=== PATIENT | female | born 1990 | race Two or more races ===

== ENCOUNTER 2016-12-06 07:34 | Emergency (ER) | payer MEDICAID ==
[~2016-12-06] VITALS: Ht 165.1 cm; Wt 49.4 kg
[~2016-12-06 07:34] MED LIST: LAMO100T5 PO; TOPI50TA77 PO
[2016-12-06 07:35] VITALS: BP 101/66
[2016-12-06 09:36] LABS: HCG UR OBC PASS
[2016-12-06] MEDS ORDERED: AZITHROMYCIN 500 MG TABLET PO ONE (10:00)
[2016-12-06] MEDS ORDERED: CEFTRIAXONE 250 MG IM ONE (10:00)
[2016-12-06] MEDS ORDERED: LIDOCAINE 1%, 20ML ONE (10:08)
[2016-12-06] MEDS ORDERED: AZITHROMYCIN 500 MG TABLET ONE (10:08)
[2016-12-06] MEDS ORDERED: CEFTRIAXONE 250 MG ONE (10:08)
== END 2016-12-06 10:25 | disposition home or self-care (01) ==
LOC: ED 08:31
DX: N39.0 Urinary tract infection, site not specified (principal); A64 Unspecified sexually transmitted disease; N76.0 Acute vaginitis; G40.909 Epilepsy, unspecified, not intractable, without status epilepticus; F15.10 Other stimulant abuse, uncomplicated
CPT/HCPCS: 81001; 81025; 87077; 87086; 87210; 87491; 87591; 87808; 96372; 99284; J0696; 87186

== ENCOUNTER 2017-07-25 19:58 | Emergency (ER) | payer MEDICAID ==
[~2017-07-25] VITALS: Ht 165.1 cm; Wt 50.0 kg
[~2017-07-25 19:58] MED LIST changes: -TOPI50TA77 PO; +TOPI50TA8 PO
[2017-07-25 20:15] VITALS: BP 115/74
[2017-07-25] MEDS ORDERED: BACITRACIN ZINC OINT 500U/GM, 0.9 GM ONE (20:42)
[2017-07-25] MEDS ORDERED: DIPH,PERTUSS(ACELL),TET VAC/PF 0.5 ML IM-VACC ONE ×2 (20:43→21:00)
== END 2017-07-25 21:10 | disposition home or self-care (01) ==
LOC: ED 21:04
DX: L03.031 Cellulitis of right toe (principal)
CPT/HCPCS: 90471; 90715

== ENCOUNTER 2018-01-05 08:45 | Emergency (ER) | payer MEDICAID ==
[~2018-01-05] VITALS: Ht 165.1 cm; Wt 46.7 kg
[2018-01-05] MEDS ORDERED: LAMOTRIGINE 100 MG TABLET PO SCH (09:30)
[2018-01-05] MEDS ORDERED: LORazepam 2 MG/ML, 1ML IVPush ONE (09:30)
[2018-01-05] MEDS ORDERED: TOPIRAMATE 25 MG TABLET PO SCH (09:30)
[2018-01-05] MEDS ORDERED: SODIUM CHLORIDE FLUSH 10ML SYR IVF ONE (09:30)
[2018-01-05] MEDS ORDERED: LORazepam 2 MG/ML, 1ML ONE (09:32)
[2018-01-05 09:41] LABS: BASOPHILS # (AUTO) 0.04 x10^3/uL (0-0.1); BASOPHILS % (AUTO) 0 % (0-1); EOSINOPHILS # (AUTO) 0.13 x10^3/uL (0-0.4); EOSINOPHILS % (AUTO) 1 % (1-7); LYMPHOCYTES # (AUTO) 2.07 x10^3/uL (1-3.4); LYMPHOCYTES % (AUTO) 22 % (22-44); MD NO; MEAN CORPUSCULAR HEMOGLOBIN 31.2 pg (27.0-34.8); MEAN CORPUSCULAR HGB CONC 34.2 g/dL (32.4-35.8); MEAN CORPUSCULAR VOLUME 91.2 fL (80-100); MEAN PLATELET VOLUME 7.7 fL (7.4-10.4); MONOCYTES # (AUTO) 0.93 x10^3/uL (0.2-0.8); MONOCYTES % (AUTO) 10 % (2-9); NEUTROPHILS # (AUTO) 6.25 x10^3/uL (1.8-6.8); NEUTROPHILS % (AUTO) 66 % (42-75); PLATELET COUNT 327 x10^3/uL (130-400); RED BLOOD COUNT 4.44 x10^6/uL (3.82-5.3); RED CELL DISTRIBUTION WIDTH 12.8 % (9.6-15.2)
[2018-01-05 09:54] LABS: ALANINE AMINOTRANSFERASE 22 U/L (12-78); ALBUMIN 4.1 g/dL (3.4-5.0); ANION GAP 9 mmol/L (5-15); CALCIUM 8.7 mg/dL (8.5-10.1); CHLORIDE 111 mmol/L (98-107)
[2018-01-05 09:58] LABS: ALKALINE PHOSPHATASE 96 U/L (45-117); BILIRUBIN,TOTAL 0.6 mg/dL (0.2-1.0)
[2018-01-05 10:05] VITALS: BP 116/79
[2018-01-05 10:34] LABS: MICROSCOPIC INDICATED
[2018-01-05 10:36] LABS: CULTURE INDICATED? YES
== END 2018-01-05 11:46 | disposition left against medical advice (07) ==
LOC: ED 09:43
DX: R56.9 Unspecified convulsions (principal); F17.200 Nicotine dependence, unspecified, uncomplicated; R82.99 Other abnormal findings in urine
CPT/HCPCS: 36415; 80053; 81001; 84703; 85025; 87077; 87086; 87186; 96374; 99284; J2060

== ENCOUNTER 2018-01-08 09:23 | Inpatient (IN) | payer MEDICAID ==
[~2018-01-08] VITALS: Ht 167.6 cm; Wt 52.8 kg
[2018-01-08] MEDS ORDERED: LORazepam 2 MG/ML, 1ML ONE ×2 (09:25→09:36)
[2018-01-08] MEDS ORDERED: SODIUM CHLORIDE 0.9% 1,000 ML IV ONE (09:32)
[2018-01-08 09:55] LABS: BASOPHILS # (AUTO) 0.05 x10^3/uL (0-0.1); BASOPHILS % (AUTO) 1 % (0-1); EOSINOPHILS # (AUTO) 0.18 x10^3/uL (0-0.4); EOSINOPHILS % (AUTO) 2 % (1-7); LYMPHOCYTES % (AUTO) 27 % (22-44); MD NO; MEAN CORPUSCULAR HEMOGLOBIN 30.6 pg (27.0-34.8); MEAN CORPUSCULAR HGB CONC 33.2 g/dL (32.4-35.8); MEAN CORPUSCULAR VOLUME 92.3 fL (80-100); MEAN PLATELET VOLUME 7.5 fL (7.4-10.4); MONOCYTES # (AUTO) 0.78 x10^3/uL (0.2-0.8); MONOCYTES % (AUTO) 8 % (2-9); NEUTROPHILS % (AUTO) 62 % (42-75); PLATELET COUNT 292 x10^3/uL (130-400); RED BLOOD COUNT 4.72 x10^6/uL (3.82-5.3); RED CELL DISTRIBUTION WIDTH 12.8 % (9.6-15.2)
[2018-01-08] MEDS ORDERED: SODIUM CHLORIDE FLUSH 10ML SYR IVF ONE (10:00)
[2018-01-08] MEDS: PROPOFOL 100 ML IV PRN ×3 (10:00→19:58)
[2018-01-08] MEDS ORDERED: LORazepam 2 MG/ML, 1ML IVPush STA (10:00)
[2018-01-08] MEDS ORDERED: ETOMIDATE 20 MG/10 ML IV ONE (10:00)
[2018-01-08] MEDS ORDERED: SUCCINYLCHOLINE 20 MG/ML, 10ML IVPush ONE (10:00)
[2018-01-08] MEDS ORDERED: LORazepam 2 MG/ML, 1ML IVPush ONE (10:00)
[2018-01-08] MEDS ORDERED: LEVETIRACETAM 1,000 MG in SODIUM CHLORIDE 0.9% 100 ML IV ONE (10:00)
[2018-01-08 10:07] LABS: ALBUMIN 3.9 g/dL (3.4-5.0); ANION GAP 16 mmol/L (5-15); CALCIUM 8.4 mg/dL (8.5-10.1); CHLORIDE 110 mmol/L (98-107)
[2018-01-08 10:13] LABS: ALANINE AMINOTRANSFERASE 20 U/L (12-78); ALKALINE PHOSPHATASE 101 U/L (45-117); BILIRUBIN,TOTAL 0.5 mg/dL (0.2-1.0); CREATININE 1.06 mg/dL (0.55-1.02); TOTAL PROTEIN 7.7 g/dL (6.4-8.2)
[2018-01-08] MEDS ORDERED: SODIUM CHLORIDE 0.9% 1,000ML IVBOLUS ONE (11:00)
[2018-01-08] MEDS ORDERED: MORPHINE SULFATE 4 MG/ML, 1ML ONE (11:02)
[2018-01-08] MEDS: MORPHINE SULFATE 4 MG/ML, 1ML IVPush PRN ×2 (11:04→14:45)
[2018-01-08] MEDS ORDERED: GADOBUTROL 7.5 MMOL/7.5 ML PFS ONE (11:29)
[2018-01-08 11:32] LABS: AMPHETAMINE SCREEN, URINE Positive (Negative); BARBITURATE SCREEN, URINE Negative (Negative); BENZODIAZEPINE SCREEN, URINE Negative (Negative); CANNABINOID SCREEN, URINE Positive (Negative); COCAINE SCREEN, URINE Negative (Negative); METHADONE SCREEN, URINE Negative (Negative); OPIATE SCREEN, URINE Negative (Negative)
[2018-01-08] MEDS ORDERED: ONDANSETRON 2MG/ML, 2ML IVPush PRN (12:00)
[2018-01-08] MEDS ORDERED: BISACODYL 10 MG SUPP PR PRN ×2 (12:00→16:30)
[2018-01-08] MEDS ORDERED: POLYETHYLENE GLYCOL 17 GM PACKET PO PRN (12:00)
[2018-01-08] MEDS ORDERED: PROPOFOL 10 MG/ML, 100ML IV ONE (12:00)
[2018-01-08] MEDS ORDERED: LORazepam 2 MG/ML, 1ML IVPush PRN (12:00)
[2018-01-08] MEDS ORDERED: DOCUSATE 100 MG CAPSULE PO PRN (12:00)
[2018-01-08] MEDS ORDERED: ETOMIDATE 40 MG/20 ML ONE (12:00)
[2018-01-08] MEDS ORDERED: hydrALAzine 20 MG/ML, 1ML IVPush PRN (12:00)
[2018-01-08] MEDS ORDERED: THIAMINE 100 MG, MVI ADULT 10 ML, FOLIC ACID 1 MG in D5%-0.9% NACL 1,000 ML IV SCH (12:00)
[2018-01-08] MEDS ORDERED: SUCCINYLCHOLINE 20 MG/ML, 10ML ONE (12:00)
[2018-01-08] MEDS ORDERED: ACETAMINOPHEN 325 MG TABLET PO PRN (12:00)
[2018-01-08 12:22] VITALS: BP 89/57
[2018-01-08] MEDS: FAMOTIDINE 20 MG/2 ML IVPush SCH ×2 (14:31→21:00)
[2018-01-08] MEDS ORDERED: INSULIN LISPRO 100 UNITS/ML, PEN SQ-INSULIN SCH (16:30)
[2018-01-08] MEDS ORDERED: DEXTROSE 50%, 50ML SYRINGE IVPush PRN (16:30)
[2018-01-08] MEDS ORDERED: FAMOTIDINE 20 MG/2 ML IV SCH (16:30)
[2018-01-08] MEDS ORDERED: LIDOCAINE-MPF 1%, 2ML ENDO PRN (16:30)
[2018-01-08] MEDS ORDERED: PHARMACY MAY ADJ FOR RENAL FX MC SCH (16:30)
[2018-01-08] MEDS ORDERED: GLUCAGON 1 MG IM PRN (16:30)
[2018-01-08] MEDS: ALBUTEROL/IPRATROPIUM 2.5MG/0.5MG, 3 ML INLINE SCH ×3 (16:30→23:12)
[2018-01-08] MEDS ORDERED: LACTULOSE 20 GM/30 ML UDC NG PRN (16:30)
[2018-01-08] MEDS ORDERED: SENNOSIDES 8.8 MG/5 ML ORAL SOL NG PRN (16:30)
[2018-01-08] MEDS ORDERED: FENTANYL PF 100 MCG/2ML IVPush PRN (16:30)
[2018-01-08] MEDS ORDERED: DEXTROSE 4 GM TAB.CHEW PO PRN (16:30)
[2018-01-08] MEDS ORDERED: SENNA/DOCUSATE TABLET NG PRN (16:30)
[2018-01-08] MEDS ORDERED: SODIUM CHLORIDE 0.9%, 500ML IV ONE (16:30)
[2018-01-08] MEDS ORDERED: SODIUM CHLORIDE 0.9%, 500ML IVBOLUS ONE (18:00)
[2018-01-08] MEDS: LACTATED RINGERS 1,000 ML IV SCH (21:00)
[2018-01-08] MEDS: SODIUM CHLORIDE FLUSH 10ML SYR IVF SCH (21:01)
[2018-01-08] MEDS ORDERED: LEVETIRACETAM 1,000 MG in SODIUM CHLORIDE 0.9% 100 ML IV SCH (22:00)
[2018-01-09] MEDS: PROPOFOL 100 ML IV PRN (01:36)
[2018-01-09] MEDS: ALBUTEROL/IPRATROPIUM 2.5MG/0.5MG, 3 ML INLINE SCH ×2 (03:00→07:04)
[2018-01-09 06:36] LABS: BASOPHILS # (AUTO) 0.11 x10^3/uL (0-0.1); BASOPHILS % (AUTO) 1 % (0-1); EOSINOPHILS # (AUTO) 0.11 x10^3/uL (0-0.4); EOSINOPHILS % (AUTO) 1 % (1-7); LYMPHOCYTES # (AUTO) 1.32 x10^3/uL (1-3.4); LYMPHOCYTES % (AUTO) 12 % (22-44); MD NO; MEAN CORPUSCULAR HEMOGLOBIN 30.5 pg (27.0-34.8); MEAN CORPUSCULAR HGB CONC 33.5 g/dL (32.4-35.8); MEAN CORPUSCULAR VOLUME 91.2 fL (80-100); MEAN PLATELET VOLUME 7.7 fL (7.4-10.4); MONOCYTES # (AUTO) 0.85 x10^3/uL (0.2-0.8); MONOCYTES % (AUTO) 7 % (2-9); NEUTROPHILS # (AUTO) 9.15 x10^3/uL (1.8-6.8); NEUTROPHILS % (AUTO) 79 % (42-75); PLATELET COUNT 229 x10^3/uL (130-400); RED BLOOD COUNT 3.86 x10^6/uL (3.82-5.3); RED CELL DISTRIBUTION WIDTH 13.1 % (9.6-15.2)
[2018-01-09 06:41] LABS: ALBUMIN 2.9 g/dL (3.4-5.0); ANION GAP 9 mmol/L (5-15); CALCIUM 7.5 mg/dL (8.5-10.1); CHLORIDE 118 mmol/L (98-107)
[2018-01-09 06:53] LABS: ALANINE AMINOTRANSFERASE 17 U/L (12-78); ALKALINE PHOSPHATASE 78 U/L (45-117); BILIRUBIN,TOTAL 0.5 mg/dL (0.2-1.0); CREATININE 0.57 mg/dL (0.55-1.02); TOTAL PROTEIN 5.5 g/dL (6.4-8.2)
[2018-01-09] MEDS: LACTATED RINGERS 1,000 ML IV SCH (07:00)
[2018-01-09] MEDS: FAMOTIDINE 20 MG/2 ML IVPush SCH (09:34)
[2018-01-09] MEDS: SODIUM CHLORIDE FLUSH 10ML SYR IVF SCH ×2 (09:34→21:21)
[2018-01-09] MEDS ORDERED: POTASSIUM CHLORIDE 20 MEQ TAB.ER.PRT PO ONE (11:00)
[2018-01-09] MEDS: LAMOTRIGINE 100 MG TABLET PO SCH ×2 (12:33→21:21)
[2018-01-09] MEDS: TOPIRAMATE 25 MG TABLET PO SCH ×2 (12:34→21:21)
[2018-01-09] MEDS: THIAMINE 100MG TABLET PO SCH (12:35)
[2018-01-09] MEDS: FOLIC ACID 1 MG TABLET PO SCH (12:35)
[2018-01-09 20:00] VITALS: BP 95/53
[2018-01-09] MEDS: FAMOTIDINE 20 MG TABLET PO SCH (21:21)
[2018-01-10 02:00] VITALS: BP 99/43
[2018-01-10 04:34] LABS: ALBUMIN 2.8 g/dL (3.4-5.0); ANION GAP 6 mmol/L (5-15); CALCIUM 7.8 mg/dL (8.5-10.1); CHLORIDE 110 mmol/L (98-107)
[2018-01-10 04:38] LABS: ALANINE AMINOTRANSFERASE 19 U/L (12-78); ALKALINE PHOSPHATASE 96 U/L (45-117); BILIRUBIN,TOTAL 0.4 mg/dL (0.2-1.0); CREATININE 0.77 mg/dL (0.55-1.02)
[2018-01-10 05:00] LABS: MEAN CORPUSCULAR HEMOGLOBIN 30.5 pg (27.0-34.8); MEAN CORPUSCULAR HGB CONC 33.4 g/dL (32.4-35.8); MEAN CORPUSCULAR VOLUME 91.4 fL (80-100); MEAN PLATELET VOLUME 8.1 fL (7.4-10.4); PLATELET COUNT 252 x10^3/uL (130-400); RED CELL DISTRIBUTION WIDTH 13.2 % (9.6-15.2)
[2018-01-10 05:43] LABS: BASOPHILS % (AUTO) 0 % (0-1); EOSINOPHILS # (AUTO) 0.13 x10^3/uL (0-0.4); EOSINOPHILS % (AUTO) 1 % (1-7); LYMPHOCYTES # (AUTO) 1.85 x10^3/uL (1-3.4); LYMPHOCYTES % (AUTO) 9 % (22-44); MD SCAN; MONOCYTES % (AUTO) 6 % (2-9); NEUTROPHILS # (AUTO) 16.61 x10^3/uL (1.8-6.8); NEUTROPHILS % (AUTO) 84 % (42-75)
[2018-01-10] MEDS ORDERED: POTASSIUM CHLORIDE 20 MEQ TAB.ER.PRT PO ONE (08:00)
[2018-01-10 09:12] VITALS: BP 98/64
[2018-01-10] MEDS: FAMOTIDINE 20 MG TABLET PO SCH (09:28)
[2018-01-10] MEDS: TOPIRAMATE 25 MG TABLET PO SCH (09:28)
[2018-01-10] MEDS: THIAMINE 100MG TABLET PO SCH (09:28)
[2018-01-10] MEDS: FOLIC ACID 1 MG TABLET PO SCH (09:29)
[2018-01-10] MEDS: LAMOTRIGINE 100 MG TABLET PO SCH (09:29)
[2018-01-10] MEDS: SODIUM CHLORIDE FLUSH 10ML SYR IVF SCH (09:29)
[2018-01-10 13:34] VITALS: BP 122/78
[2018-01-10] MEDS ORDERED: LAMO100T5 PO (13:55)
[2018-01-10] MEDS ORDERED: TOPI50TA8 PO (13:55)
== END 2018-01-10 18:18 | disposition home or self-care (01) | DRG 100 ==
LOC: ED 10:34 → EDIP 11:06 → CCU 11:53 → 5SO 01-10 07:24
PROVIDERS: ADMIT Emergency Medicine; ATTEND Emergency Medicine
PROC: 5A1935Z Respiratory Ventilation, Less than 24 Consecutive Hours (ICD-10-PCS; principal; 2018-01-08)
PROC: 0BH17EZ Insertion of Endotracheal Airway into Trachea, Via Natural or Artificial Opening (ICD-10-PCS; 2018-01-08)
DX: G40.401 Other generalized epilepsy and epileptic syndromes, not intractable, with status epilepticus (principal); J96.00 Acute respiratory failure, unspecified whether with hypoxia or hypercapnia; E87.2 Acidosis; Z99.11 Dependence on respirator [ventilator] status; F15.90 Other stimulant use, unspecified, uncomplicated; R22.0 Localized swelling, mass and lump, head; Z59.0 Homelessness; Z78.1 Physical restraint status; Z91.14 Patient's other noncompliance with medication regimen; Z91.19 Patient's noncompliance with other medical treatment and regimen
CPT/HCPCS: 31500; 36415; 36600; 51702; 70450; 70553; 71045; 80053; 80307; 82803; 83735; 84100; 84443; 84478; 84703; 85025; 87070; 87081; 87205; 93005; 94002; 94003; 94150; 94640; 95812; 96374; 96375; A9585; J1953; J2704; J3411; J7042; J7620; J0330; J2060; J7030; J7040; J7120; S0028

== ENCOUNTER 2018-04-25 19:06 | Emergency (ER) | payer MEDICAID ==
[2018-04-25] MEDS ORDERED: HYDROcodone/APAP 5/325 TABLET PO STA (20:29)
[2018-04-25] MEDS ORDERED: SULFAMETH./TRIMETHOPRIM DS 800MG/160MG TABLET PO ONE (20:30)
[2018-04-25] MEDS ORDERED: CEPHALEXIN 500 MG CAPSULE PO ONE (20:30)
[2018-04-25] MEDS ORDERED: SULFAMETH./TRIMETHOPRIM DS 800MG/160MG TABLET ONE (20:38)
[2018-04-25] MEDS ORDERED: CEPHALEXIN 500 MG CAPSULE ONE (20:38)
[2018-04-25] MEDS ORDERED: HYDROcodone/APAP 5/325 TABLET ONE (20:38)
[2018-04-25] MEDS ORDERED: LIDOCAINE-MPF 2%, 2ML ONE (21:22)
[2018-04-25 21:58] VITALS: BP 126/72
== END 2018-04-25 22:00 | disposition home or self-care (01) ==
LOC: ED 21:54
DX: L02.415 Cutaneous abscess of right lower limb (principal); L03.011 Cellulitis of right finger; F15.20 Other stimulant dependence, uncomplicated; F17.200 Nicotine dependence, unspecified, uncomplicated; G40.909 Epilepsy, unspecified, not intractable, without status epilepticus
CPT/HCPCS: 10060; 82962; 99284

== ENCOUNTER 2018-09-22 16:51 | Inpatient (IN) | payer MEDICAID ==
[~2018-09-22] VITALS: Ht 165.1 cm; Wt 65.9 kg
[2018-09-22 17:48] LABS: AMPHETAMINE SCREEN, URINE Negative (Negative); BARBITURATE SCREEN, URINE Negative (Negative); BENZODIAZEPINE SCREEN, URINE Negative (Negative); CANNABINOID SCREEN, URINE Negative (Negative); COCAINE SCREEN, URINE Negative (Negative); METHADONE SCREEN, URINE Negative (Negative); MICROSCOPIC INDICATED; OPIATE SCREEN, URINE Negative (Negative)
[2018-09-22] MEDS: LACTATED RINGERS 1,000 ML IV SCH (18:00)
[2018-09-22] MEDS ORDERED: BETAMETHASONE 6 MG/ML, 5ML IM ONE (18:08)
[2018-09-22] MEDS: AMPICILLIN 2 GM IV SCH (18:25)
[2018-09-22] MEDS: BETAMETHASONE 6 MG/ML, 5ML IM SCH (18:25)
[2018-09-22 19:31] LABS: BASOPHILS # (AUTO) 0.09 x10^3/uL (0-0.1); BASOPHILS % (AUTO) 1 % (0-1); EOSINOPHILS # (AUTO) 0.03 x10^3/uL (0-0.4); EOSINOPHILS % (AUTO) 0 % (1-7); LYMPHOCYTES # (AUTO) 1.57 x10^3/uL (1-3.4); LYMPHOCYTES % (AUTO) 14 % (22-44); MD NO; MEAN CORPUSCULAR HEMOGLOBIN 32.1 pg (27.0-34.8); MEAN CORPUSCULAR HGB CONC 34.1 g/dL (32.4-35.8); MEAN CORPUSCULAR VOLUME 93.9 fL (80-100); MEAN PLATELET VOLUME 8.3 fL (7.4-10.4); MONOCYTES # (AUTO) 0.81 x10^3/uL (0.2-0.8); MONOCYTES % (AUTO) 7 % (2-9); NEUTROPHILS # (AUTO) 9.17 x10^3/uL (1.8-6.8); NEUTROPHILS % (AUTO) 79 % (42-75); PLATELET COUNT 231 x10^3/uL (130-400); RED BLOOD COUNT 3.91 x10^6/uL (3.82-5.3); RED CELL DISTRIBUTION WIDTH 13.2 % (9.6-15.2)
[2018-09-22] MEDS: LEVETIRACETAM 500 MG TABLET PO SCH (19:38)
[2018-09-22 19:40] LABS: ALANINE AMINOTRANSFERASE 25 U/L (12-78); ALBUMIN 2.6 g/dL (3.4-5.0); ANION GAP 8 mmol/L (5-15); CALCIUM 8.2 mg/dL (8.5-10.1); CHLORIDE 106 mmol/L (98-107); CREATININE 0.68 mg/dL (0.55-1.02)
[2018-09-22 19:42] LABS: ALKALINE PHOSPHATASE 139 U/L (45-117); BILIRUBIN,TOTAL 0.2 mg/dL (0.2-1.0); TOTAL PROTEIN 6.1 g/dL (6.4-8.2)
[2018-09-23] MEDS: AMPICILLIN 2 GM IV SCH ×4 (00:23→21:28)
[2018-09-23] MEDS: LACTATED RINGERS 1,000 ML IV SCH ×3 (02:00→18:00)
[2018-09-23] MEDS: LEVETIRACETAM 500 MG TABLET PO SCH ×2 (06:40→19:05)
[2018-09-23] MEDS ORDERED: DOCUSATE 100 MG CAPSULE ONE (18:16)
[2018-09-23] MEDS: BETAMETHASONE 6 MG/ML, 5ML IM SCH (18:26)
[2018-09-23] MEDS ORDERED: ERYTHROMYCIN 250 MG in SODIUM CHLORIDE 0.9% 100 ML IV SCH (20:00)
[2018-09-23] MEDS: DOCUSATE 100 MG CAPSULE PO SCH (21:00)
[2018-09-23] MEDS ORDERED: AMPICILLIN 2 GM IV SCH (21:00)
[2018-09-23] MEDS ORDERED: AZITHROMYCIN 500 MG in SODIUM CHLORIDE 0.9% 250 ML IV SCH (22:00)
[2018-09-24] MEDS: LACTATED RINGERS 1,000 ML IV SCH ×3 (02:00→23:56)
[2018-09-24] MEDS: AMPICILLIN 2 GM IV SCH ×4 (05:57→23:57)
[2018-09-24] MEDS: LEVETIRACETAM 500 MG TABLET PO SCH ×3 (06:33→18:27)
[2018-09-24] MEDS ORDERED: PRENATAL VIT/IRON/FA 1 EACH TABLET ONE (08:17)
[2018-09-24] MEDS ORDERED: DOCUSATE 100 MG CAPSULE ONE (08:18)
[2018-09-24] MEDS: PRENATAL VIT/IRON/FA 1 EACH TABLET PO SCH (08:44)
[2018-09-24] MEDS: DOCUSATE 100 MG CAPSULE PO SCH ×2 (08:44→21:00)
[2018-09-24 08:45] VITALS: BP 117/67
[2018-09-24] MEDS ORDERED: ERYTHROMYCIN BASE 250 MG TABLET PO SCH (13:00)
[2018-09-24] MEDS ORDERED: AZITHROMYCIN 500 MG in SODIUM CHLORIDE 0.9% 250 ML IV SCH (22:00)
[2018-09-25] MEDS: LACTATED RINGERS 1,000 ML IV SCH ×2 (02:00→10:00)
[2018-09-25] MEDS: ERYTHROMYCIN BASE 250 MG TABLET PO SCH ×4 (04:54→22:36)
[2018-09-25] MEDS ORDERED: AMPICILLIN 2 GM in SODIUM CHLORIDE 0.9% 100 ML IV SCH (06:00)
[2018-09-25] MEDS ORDERED: ERYTHROMYCIN BASE 250 MG TABLET PO SCH ×2 (06:00→18:00)
[2018-09-25] MEDS: LEVETIRACETAM 500 MG TABLET PO SCH ×2 (06:59→19:32)
[2018-09-25] MEDS: DOCUSATE 100 MG CAPSULE PO SCH (09:00)
[2018-09-25] MEDS ORDERED: PRENATAL VIT/IRON/FA 1 EACH TABLET ONE (11:56)
[2018-09-25] MEDS ORDERED: DOCUSATE 100 MG CAPSULE ONE (11:56)
[2018-09-25] MEDS: PRENATAL VIT/IRON/FA 1 EACH TABLET PO SCH (11:58)
[2018-09-25] MEDS: AMOXICILLIN 250 MG CAPSULE PO SCH ×2 (16:30→20:57)
[2018-09-25] MEDS ORDERED: AMOXICILLIN 250 MG CAPSULE ONE ×2 (16:47→20:55)
[2018-09-25] MEDS ORDERED: AMOXICILLIN 250 MG CAPSULE PO SCH (21:00)
[2018-09-26] MEDS ORDERED: AMOXICILLIN 250 MG CAPSULE ONE ×3 (05:05→20:52)
[2018-09-26] MEDS: AMOXICILLIN 250 MG CAPSULE PO SCH ×3 (05:12→20:56)
[2018-09-26] MEDS: ERYTHROMYCIN BASE 250 MG TABLET PO SCH ×4 (05:13→23:16)
[2018-09-26 05:50] LABS: ALBUMIN 2.7 g/dL (3.4-5.0); ANION GAP 8 mmol/L (5-15); CALCIUM 8.2 mg/dL (8.5-10.1); CHLORIDE 108 mmol/L (98-107)
[2018-09-26 05:53] LABS: ALANINE AMINOTRANSFERASE 34 U/L (12-78); ALKALINE PHOSPHATASE 124 U/L (45-117); BILIRUBIN,TOTAL 0.2 mg/dL (0.2-1.0); CREATININE 0.59 mg/dL (0.55-1.02); TOTAL PROTEIN 6.2 g/dL (6.4-8.2)
[2018-09-26] MEDS: LEVETIRACETAM 500 MG TABLET PO SCH ×2 (07:13→19:28)
[2018-09-26 07:24] VITALS: BP 89/55
[2018-09-26] MEDS ORDERED: PRENATAL VIT/IRON/FA 1 EACH TABLET ONE (08:58)
[2018-09-26] MEDS ORDERED: DOCUSATE 100 MG CAPSULE ONE (08:58)
[2018-09-26] MEDS: PRENATAL VIT/IRON/FA 1 EACH TABLET PO SCH (08:59)
[2018-09-26] MEDS: SODIUM CHLORIDE FLUSH 10ML SYR IVF SCH (20:56)
[2018-09-27] MEDS ORDERED: AMOXICILLIN 250 MG CAPSULE ONE ×3 (04:46→20:50)
[2018-09-27] MEDS: AMOXICILLIN 250 MG CAPSULE PO SCH ×3 (04:49→20:54)
[2018-09-27] MEDS: ERYTHROMYCIN BASE 250 MG TABLET PO SCH ×4 (04:49→22:33)
[2018-09-27] MEDS: LEVETIRACETAM 500 MG TABLET PO SCH ×3 (07:04→19:24)
[2018-09-27] MEDS ORDERED: LORazepam 2 MG/ML, 1ML ONE ×3 (07:12→17:03)
[2018-09-27] MEDS: LORazepam 2 MG/ML, 1ML IVPush PRN ×2 (07:18→17:06)
[2018-09-27] MEDS ORDERED: PRENATAL VIT/IRON/FA 1 EACH TABLET ONE (08:46)
[2018-09-27] MEDS ORDERED: FERROUS SULFATE 325 MG TABLET ONE (08:46)
[2018-09-27] MEDS: SODIUM CHLORIDE FLUSH 10ML SYR IVF SCH ×2 (09:00→20:55)
[2018-09-27 10:30] LABS: ALANINE AMINOTRANSFERASE 31 U/L (12-78); ALBUMIN 2.5 g/dL (3.4-5.0); ANION GAP 5 mmol/L (5-15); CHLORIDE 109 mmol/L (98-107); CREATININE 0.59 mg/dL (0.55-1.02)
[2018-09-27 10:32] LABS: ALKALINE PHOSPHATASE 117 U/L (45-117); BILIRUBIN,TOTAL 0.2 mg/dL (0.2-1.0); TOTAL PROTEIN 5.9 g/dL (6.4-8.2)
[2018-09-27 10:33] LABS: MEAN CORPUSCULAR HEMOGLOBIN 31.4 pg (27.0-34.8); MEAN CORPUSCULAR HGB CONC 33.5 g/dL (32.4-35.8); MEAN CORPUSCULAR VOLUME 93.8 fL (80-100); MEAN PLATELET VOLUME 8.1 fL (7.4-10.4); PLATELET COUNT 217 x10^3/uL (130-400); RED BLOOD COUNT 3.52 x10^6/uL (3.82-5.3); RED CELL DISTRIBUTION WIDTH 13.1 % (9.6-15.2)
[2018-09-27 10:34] LABS: BILIRUBIN, DIRECT < 0.1 mg/dL (0.1-0.2)
[2018-09-27 11:32] LABS: BASOPHILS # (AUTO) 0.05 x10^3/uL (0-0.1); BASOPHILS % (AUTO) 0 % (0-1); EOSINOPHILS # (AUTO) 0.01 x10^3/uL (0-0.4); EOSINOPHILS % (AUTO) 0 % (1-7); LYMPHOCYTES # (AUTO) 1.73 x10^3/uL (1-3.4); LYMPHOCYTES % (AUTO) 10 % (22-44); MD SCAN; MONOCYTES # (AUTO) 1.44 x10^3/uL (0.2-0.8); MONOCYTES % (AUTO) 9 % (2-9); NEUTROPHILS # (AUTO) 13.66 x10^3/uL (1.8-6.8); NEUTROPHILS % (AUTO) 81 % (42-75)
[2018-09-27] MEDS: PRENATAL VIT/IRON/FA 1 EACH TABLET PO SCH (11:34)
[2018-09-27] MEDS ORDERED: LEVETIRACETAM 1,000 MG in SODIUM CHLORIDE 0.9% 100 ML IV ONE (17:00)
[2018-09-27] MEDS: LACTATED RINGERS 1,000 ML IV SCH (17:57)
[2018-09-28] MEDS ORDERED: AMOXICILLIN 250 MG CAPSULE ONE ×3 (05:10→20:38)
[2018-09-28] MEDS: ERYTHROMYCIN BASE 250 MG TABLET PO SCH ×4 (05:14→23:02)
[2018-09-28] MEDS: AMOXICILLIN 250 MG CAPSULE PO SCH ×3 (05:14→20:53)
[2018-09-28] MEDS: LEVETIRACETAM 500 MG TABLET PO SCH ×2 (07:22→19:15)
[2018-09-28] MEDS ORDERED: PRENATAL VIT/IRON/FA 1 EACH TABLET ONE (07:36)
[2018-09-28] MEDS: PRENATAL VIT/IRON/FA 1 EACH TABLET PO SCH (07:36)
[2018-09-28] MEDS ORDERED: LORazepam 2 MG/ML, 1ML IVPush PRN (13:30)
[2018-09-28] MEDS ORDERED: ONDANSETRON 2MG/ML, 2ML ONE (18:26)
[2018-09-28] MEDS ORDERED: MAGNESIUM SULF. PMX 20GM/500ML 500 ML IV ONE (18:27)
[2018-09-28] MEDS ORDERED: CALCIUM GLUCONATE 4.6 MEQ in SODIUM CHLORIDE 0.9% 50 ML IV ONE (18:30)
[2018-09-28] MEDS ORDERED: ONDANSETRON 2MG/ML, 2ML IVPush ONE (18:30)
[2018-09-28] MEDS ORDERED: CALCIUM GLUCONATE 4.6 MEQ/10 ML IV PRN (18:30)
[2018-09-28] MEDS: MAGNESIUM SULF. PMX 20GM/500ML 500 ML IV SCH (18:34)
[2018-09-29] MEDS: LACTATED RINGERS 1,000 ML IV PRN ×2 (03:29→14:10)
[2018-09-29] MEDS: ERYTHROMYCIN BASE 250 MG TABLET PO SCH ×3 (05:14→17:00)
[2018-09-29] MEDS: LEVETIRACETAM 500 MG TABLET PO SCH ×2 (07:13→20:14)
[2018-09-29] MEDS ORDERED: MAGNESIUM SULF. PMX 20GM/500ML 500 ML IV ONE (07:41)
[2018-09-29] MEDS: MAGNESIUM SULF. PMX 20GM/500ML 500 ML IV SCH (08:07)
[2018-09-29] MEDS: PRENATAL VIT/IRON/FA 1 EACH TABLET PO SCH (09:00)
[2018-09-29] MEDS ORDERED: AMOXICILLIN 250 MG CAPSULE ONE ×3 (11:27→21:28)
[2018-09-29] MEDS: AMOXICILLIN 250 MG CAPSULE PO SCH ×3 (11:29→21:30)
[2018-09-29] MEDS ORDERED: PRENATAL VIT/IRON/FA 1 EACH TABLET ONE (14:13)
[2018-09-29] MEDS ORDERED: ONDANSETRON 2MG/ML, 2ML ONE (20:16)
[2018-09-29] MEDS ORDERED: ONDANSETRON 2MG/ML, 2ML IVPush PRN (20:30)
[2018-09-29] MEDS ORDERED: MISOPROSTOL 200 MCG TABLET ONE (21:28)
[2018-09-29] MEDS ORDERED: LIDOCAINE 1%, 20ML ONE (21:28)
[2018-09-29] MEDS ORDERED: OXYTOCIN 30U/ 0.9% NaCL 500ML 500 ML ONE (21:28)
[2018-09-29] MEDS ORDERED: OXYTOCIN 30U/ 0.9% NaCL 500ML 500 ML IV ONE (21:33)
[2018-09-29] MEDS ORDERED: D5%-LACTATED RINGERS 1,000 ML IV SCH (21:33)
[2018-09-29] MEDS ORDERED: LACTATED RINGERS 1,000 ML IV SCH (21:33)
[2018-09-29] MEDS ORDERED: LORazepam 2 MG/ML, 1ML ONE (21:40)
[2018-09-29 21:56] LABS: MEAN CORPUSCULAR HEMOGLOBIN 31.8 pg (27.0-34.8); MEAN CORPUSCULAR HGB CONC 34.2 g/dL (32.4-35.8); MEAN CORPUSCULAR VOLUME 93.2 fL (80-100); MEAN PLATELET VOLUME 7.6 fL (7.4-10.4); PLATELET COUNT 243 x10^3/uL (130-400); RED BLOOD COUNT 3.78 x10^6/uL (3.82-5.3); RED CELL DISTRIBUTION WIDTH 13.1 % (9.6-15.2)
[2018-09-29] MEDS ORDERED: TERBUTALINE 1 MG/ML, 1ML IVPush PRN (22:00)
[2018-09-29] MEDS ORDERED: CALCIUM CARBONATE 500 MG TAB.CHEW PO PRN (22:00)
[2018-09-29] MEDS ORDERED: FENTANYL PF 100 MCG/2ML ONE (22:03)
[2018-09-29] MEDS: FENTANYL PF 100 MCG/2ML IVPush PRN (22:08)
[2018-09-29] MEDS ORDERED: FENTANYL 1500 MCG/30 ML PCA IV PRN (22:30)
[2018-09-29 22:34] LABS: BASOPHILS # (AUTO) 0.07 x10^3/uL (0-0.1); BASOPHILS % (AUTO) 0 % (0-1); EOSINOPHILS # (AUTO) 0.02 x10^3/uL (0-0.4); EOSINOPHILS % (AUTO) 0 % (1-7); LYMPHOCYTES # (AUTO) 1.15 x10^3/uL (1-3.4); LYMPHOCYTES % (AUTO) 4 % (22-44); MD SCAN; MONOCYTES # (AUTO) 1.38 x10^3/uL (0.2-0.8); MONOCYTES % (AUTO) 5 % (2-9); NEUTROPHILS % (AUTO) 91 % (42-75)
[2018-09-30] MEDS: LACTATED RINGERS 1,000 ML IV PRN (00:13)
[2018-09-30] MEDS: ERYTHROMYCIN BASE 250 MG TABLET PO SCH (01:14)
[2018-09-30] MEDS ORDERED: MAGNESIUM SULF. PMX 20GM/500ML 500 ML IV ONE (01:22)
[2018-09-30] MEDS ORDERED: MAGNESIUM SULF. PMX 20GM/500ML 500 ML IV SCH (04:07)
[2018-09-30] MEDS: LEVETIRACETAM 500 MG TABLET PO SCH ×2 (07:10→19:24)
[2018-09-30 07:11] LABS: INTERNATIONAL NORMALIZED RATIO 0.85 (0.93-1.1)
[2018-09-30] MEDS ORDERED: GENTAMICIN PER PHARMACY MC SCH (07:36)
[2018-09-30] MEDS ORDERED: OXYTOCIN 30U/ 0.9% NaCL 500ML 500 ML IV PRN (07:50)
[2018-09-30] MEDS ORDERED: AMPICILLIN 2 GM in SODIUM CHLORIDE 0.9% 100 ML IV SCH (08:00)
[2018-09-30] MEDS ORDERED: PHARMACOKINETIC MONITORING MC PRN (08:00)
[2018-09-30] MEDS ORDERED: PHARMACOKINETIC CONSULTATION MC ONE (08:00)
[2018-09-30 08:21] VITALS: BP 94/53
[2018-09-30] MEDS: GENTAMICIN 120 MG in SODIUM CHLORIDE 0.9% 50 ML IV SCH ×2 (08:24→16:14)
[2018-09-30] MEDS ORDERED: NEWBORN KIT ONE (08:38)
[2018-09-30] MEDS: PRENATAL VIT/IRON/FA 1 EACH TABLET PO SCH (09:00)
[2018-09-30] MEDS ORDERED: FENTANYL PF 100 MCG/2ML ONE (10:53)
[2018-09-30] MEDS: FENTANYL PF 100 MCG/2ML IVPush PRN (10:54)
[2018-09-30] MEDS ORDERED: MIDAZOLAM 1 MG/ML, 2ML ONE (11:03)
[2018-09-30] MEDS ORDERED: PROPOFOL 10 MG/ML, 20ML ONE (11:03)
[2018-09-30] MEDS ORDERED: MISOPROSTOL 200 MCG TABLET PR ONE (12:00)
[2018-09-30] MEDS ORDERED: OXYTOCIN 30U/ 0.9% NaCL 500ML 500 ML ONE (12:42)
[2018-09-30] MEDS: OXYTOCIN 30U/ 0.9% NaCL 500ML 500 ML IV SCH (12:46)
[2018-09-30] MEDS: AMPICILLIN 2 GM in SODIUM CHLORIDE 0.9% 100 ML IV SCH ×2 (14:06→19:25)
[2018-09-30] MEDS: DOCUSATE 100 MG CAPSULE PO SCH (21:00)
[2018-10-01] MEDS: LACTATED RINGERS 1,000 ML IV PRN (00:01)
[2018-10-01] MEDS: AMPICILLIN 2 GM in SODIUM CHLORIDE 0.9% 100 ML IV SCH ×2 (00:49→07:17)
[2018-10-01] MEDS: OXYTOCIN 30U/ 0.9% NaCL 500ML 500 ML IV SCH (01:30)
[2018-10-01 01:55] VITALS: BP 89/56
[2018-10-01] MEDS ORDERED: IBUPROFEN 600 MG TABLET PO PRN (02:00)
[2018-10-01] MEDS ORDERED: MAGNESIUM SULF. PMX 20GM/500ML 500 ML IV SCH (04:07)
[2018-10-01 04:55] VITALS: BP 91/50
[2018-10-01 06:04] LABS: MEAN CORPUSCULAR HEMOGLOBIN 32.6 pg (27.0-34.8); MEAN CORPUSCULAR HGB CONC 34.3 g/dL (32.4-35.8); MEAN CORPUSCULAR VOLUME 95.1 fL (80-100); MEAN PLATELET VOLUME 7.9 fL (7.4-10.4); PLATELET COUNT 210 x10^3/uL (130-400); RED BLOOD COUNT 2.62 x10^6/uL (3.82-5.3); RED CELL DISTRIBUTION WIDTH 12.7 % (9.6-15.2)
[2018-10-01 07:00] LABS: BASOPHILS # (AUTO) 0.04 x10^3/uL (0-0.1); BASOPHILS % (AUTO) 0 % (0-1); EOSINOPHILS # (AUTO) 0.04 x10^3/uL (0-0.4); EOSINOPHILS % (AUTO) 0 % (1-7); LYMPHOCYTES # (AUTO) 2.77 x10^3/uL (1-3.4); LYMPHOCYTES % (AUTO) 15 % (22-44); MD SCAN; MONOCYTES # (AUTO) 1.72 x10^3/uL (0.2-0.8); MONOCYTES % (AUTO) 10 % (2-9); NEUTROPHILS # (AUTO) 13.63 x10^3/uL (1.8-6.8); NEUTROPHILS % (AUTO) 75 % (42-75)
[2018-10-01] MEDS: LEVETIRACETAM 500 MG TABLET PO SCH (07:17)
[2018-10-01 07:45] VITALS: BP 86/39
[2018-10-01] MEDS: GENTAMICIN 120 MG in SODIUM CHLORIDE 0.9% 50 ML IV SCH ×2 (08:35)
[2018-10-01] MEDS ORDERED: PRENATAL VIT/IRON/FA 1 EACH TABLET PO SCH (09:00)
[2018-10-01] MEDS ORDERED: OXYC-302 PO (09:01)
[2018-10-01] MEDS ORDERED: IBUP-1222 PO (09:02)
[2018-10-01] MEDS ORDERED: iron PO (09:06)
[2018-10-01] MEDS ORDERED: pericolace PO (09:07)
[2018-10-01 12:30] VITALS: BP 93/46
== END 2018-10-01 17:11 | disposition home or self-care (01) | DRG 805 ==
LOC: LDOP 16:51 → LDIP 18:09 → 2NW 10-01 01:26
PROVIDERS: ADMIT Obstetrics & Gynecology; ATTEND Obstetrics & Gynecology
PROC: 10E0XZZ Delivery of Products of Conception, External Approach (ICD-10-PCS; principal; 2018-09-30)
PROC: 3E033VJ Introduction of Other Hormone into Peripheral Vein, Percutaneous Approach (ICD-10-PCS; 2018-09-30)
DX: O42.913 Preterm premature rupture of membranes, unspecified as to length of time between rupture and onset of labor, third trimester (principal); O41.1230 Chorioamnionitis, third trimester, not applicable or unspecified; Z37.0 Single live birth; O99.324 Drug use complicating childbirth; O99.354 Diseases of the nervous system complicating childbirth; O98.02 Tuberculosis complicating childbirth; A15.9 Respiratory tuberculosis unspecified; F15.90 Other stimulant use, unspecified, uncomplicated; G40.401 Other generalized epilepsy and epileptic syndromes, not intractable, with status epilepticus; Z3A.28 28 weeks gestation of pregnancy; Z59.0 Homelessness
CPT/HCPCS: 36415; 70551; 76805; 80053; 80177; 80307; 81001; 81050; 82248; 82570; 82950; 83605; 83735; 84112; 84156; 84550; 85025; 85610; 85730; 86140; 86803; 86850; 86900; 87070; 87075; 87077; 87081; 87086; 87106; 87147; 87186; 87205; 87340; 87806; 88305; 93005; 95819; G0378; J0290; J0456; J0610; J0702; J1953; J2250; J2405; J2704; J3010; G0475; J1580; J2060; J2590; J3475; J7050; J7120

== ENCOUNTER 2018-10-06 09:17 | Inpatient (IN) | payer MEDICAID ==
[~2018-10-06] VITALS: Ht 165.1 cm; Wt 53.8 kg
[~2018-10-06 09:17] MED LIST changes: +IBUP-1222 PO; +OXYC-302 PO; +iron PO; +pericolace PO
[2018-10-06] MEDS ORDERED: LORazepam 2 MG/ML, 1ML IVPush ONE (09:30)
[2018-10-06] MEDS ORDERED: SODIUM CHLORIDE FLUSH 10ML SYR IVF ONE (09:30)
[2018-10-06] MEDS ORDERED: LEVETIRACETAM 1,000 MG in SODIUM CHLORIDE 0.9% 100 ML IV ONE (09:30)
[2018-10-06 09:58] LABS: BASOPHILS # (AUTO) 0.07 x10^3/uL (0-0.1); BASOPHILS % (AUTO) 1 % (0-1); EOSINOPHILS # (AUTO) 0.15 x10^3/uL (0-0.4); EOSINOPHILS % (AUTO) 2 % (1-7); LYMPHOCYTES # (AUTO) 1.15 x10^3/uL (1-3.4); LYMPHOCYTES % (AUTO) 12 % (22-44); MD NO; MEAN CORPUSCULAR HEMOGLOBIN 32.1 pg (27.0-34.8); MEAN CORPUSCULAR HGB CONC 34.5 g/dL (32.4-35.8); MEAN CORPUSCULAR VOLUME 93.1 fL (80-100); MEAN PLATELET VOLUME 6.8 fL (7.4-10.4); MONOCYTES # (AUTO) 0.61 x10^3/uL (0.2-0.8); MONOCYTES % (AUTO) 7 % (2-9); NEUTROPHILS # (AUTO) 7.35 x10^3/uL (1.8-6.8); NEUTROPHILS % (AUTO) 79 % (42-75); PLATELET COUNT 487 x10^3/uL (130-400); RED BLOOD COUNT 3.25 x10^6/uL (3.82-5.3); RED CELL DISTRIBUTION WIDTH 12.7 % (9.6-15.2)
[2018-10-06 10:09] LABS: ALANINE AMINOTRANSFERASE 59 U/L (12-78); ALBUMIN 2.8 g/dL (3.4-5.0); ANION GAP 8 mmol/L (5-15); CALCIUM 8.6 mg/dL (8.5-10.1); CHLORIDE 110 mmol/L (98-107); CREATININE 0.65 mg/dL (0.55-1.02)
[2018-10-06 10:13] LABS: ALKALINE PHOSPHATASE 126 U/L (45-117); BILIRUBIN,TOTAL 0.5 mg/dL (0.2-1.0); SALICYLATE LEVEL 2.1 mg/dL (2.8-20.0); TOTAL PROTEIN 6.7 g/dL (6.4-8.2)
[2018-10-06 10:14] LABS: ACETAMINOPHEN < 2 mcg/mL (10-30)
[2018-10-06] MEDS ORDERED: SODIUM CHLORIDE FLUSH 10ML SYR IVF PRN (10:30)
--- NOTE | 2018-10-06 10:30 | NUR ---
PT HAS MEDIUM VAGINAL BLEEDING. CLEANED UP AND OB PAD IN PLACE. AWARE OF PENDING ADMISSION. CONTINUE TO MONITOR
--- NOTE | 2018-10-06 10:55 | NUR ---
URINE SAMPLE OBTAINED ON BEDPAN. PROVIDED CRACKERS PUDDING MILK AND JUICE
--- NOTE | 2018-10-06 10:58 | NUR ---
PASTRY ASSISTANT AT BEDSIDE
[2018-10-06 11:21] LABS: MICROSCOPIC AUTO
[2018-10-06 11:25] LABS: AMPHETAMINE SCREEN, URINE Positive (Negative); BARBITURATE SCREEN, URINE Negative (Negative); BENZODIAZEPINE SCREEN, URINE Negative (Negative); CANNABINOID SCREEN, URINE Negative (Negative); COCAINE SCREEN, URINE Negative (Negative); METHADONE SCREEN, URINE Negative (Negative); OPIATE SCREEN, URINE Negative (Negative)
[2018-10-06 11:28] LABS: CULTURE INDICATED? YES
--- NOTE | 2018-10-06 11:47 | NUR ---
RESTING, A&O, AWAITNG ROOM ASSIGNMENT. CONTINUE TO MONITOR
--- NOTE | 2018-10-06 12:19 | NUR ---
FRIEND AT BEDSIDE AND PT EATING FOOD THAT HE BROUGHT. CONTINUE TO MONITOR
[2018-10-06] MEDS ORDERED: ACETAMINOPHEN 325 MG TABLET PO PRN (13:00)
[2018-10-06] MEDS ORDERED: NICOTINE 14MG/24 HR PATCH.TD24 TD SCH (13:00)
[2018-10-06] MEDS ORDERED: IBUPROFEN 600 MG TABLET PO PRN (13:00)
[2018-10-06] MEDS ORDERED: POTASSIUM CHLORIDE 20 MEQ TAB.ER.PRT PO ONE (13:30)
[2018-10-06] MEDS ORDERED: LORazepam 2 MG/ML, 1ML IVPush PRN (13:30)
--- NOTE | 2018-10-06 13:37 | NUR ---
report to shanell mcfadden. pt to be transported
--- NOTE | 2018-10-06 13:59 | NUR ---
SLEEPING. AWAITING TO BE TRANSPORTED TO FLOOR
[2018-10-06] MEDS ORDERED: CEFD250S26 PO (14:05)
[2018-10-06] MEDS: NS + 20MEQ KCL 1,000 ML IV SCH (15:37)
[2018-10-06 19:00] VITALS: BP 97/58
[2018-10-06 19:29] VITALS: BP 125/86
[2018-10-06] MEDS: LEVETIRACETAM 500 MG TABLET PO SCH (20:45)
[2018-10-06] MEDS: CEFDINIR 300 MG CAPSULE PO SCH (20:45)
[2018-10-07 02:07] VITALS: BP 100/56
[2018-10-07 05:29] LABS: BASOPHILS # (AUTO) 0.05 x10^3/uL (0-0.1); BASOPHILS % (AUTO) 1 % (0-1); EOSINOPHILS # (AUTO) 0.25 x10^3/uL (0-0.4); EOSINOPHILS % (AUTO) 3 % (1-7); LYMPHOCYTES # (AUTO) 3.22 x10^3/uL (1-3.4); LYMPHOCYTES % (AUTO) 32 % (22-44); MD NO; MEAN CORPUSCULAR HEMOGLOBIN 32.1 pg (27.0-34.8); MEAN CORPUSCULAR HGB CONC 33.9 g/dL (32.4-35.8); MEAN CORPUSCULAR VOLUME 94.7 fL (80-100); MONOCYTES # (AUTO) 1.05 x10^3/uL (0.2-0.8); MONOCYTES % (AUTO) 10 % (2-9); NEUTROPHILS # (AUTO) 5.57 x10^3/uL (1.8-6.8); NEUTROPHILS % (AUTO) 55 % (42-75); PLATELET COUNT 482 x10^3/uL (130-400); RED BLOOD COUNT 3.14 x10^6/uL (3.82-5.3)
[2018-10-07 05:42] LABS: ALBUMIN 2.4 g/dL (3.4-5.0); ANION GAP 6 mmol/L (5-15); CALCIUM 7.8 mg/dL (8.5-10.1); CHLORIDE 109 mmol/L (98-107)
[2018-10-07 05:53] LABS: ALANINE AMINOTRANSFERASE 44 U/L (12-78); ALKALINE PHOSPHATASE 107 U/L (45-117); BILIRUBIN,TOTAL 0.2 mg/dL (0.2-1.0); CREATININE 0.57 mg/dL (0.55-1.02); TOTAL PROTEIN 5.9 g/dL (6.4-8.2)
[2018-10-07 06:45] VITALS: BP 104/67
[2018-10-07] MEDS ORDERED: POTASSIUM CHLORIDE 20 MEQ TAB.ER.PRT PO ONE ×2 (07:00→14:30)
[2018-10-07] MEDS: NS + 20MEQ KCL 1,000 ML IV SCH (08:00)
[2018-10-07] MEDS: CEFDINIR 300 MG CAPSULE PO SCH (09:45)
[2018-10-07] MEDS: LEVETIRACETAM 500 MG TABLET PO SCH (09:45)
[2018-10-07 12:08] VITALS: BP 110/65
[2018-10-07] MEDS ORDERED: CEFD300C37 PO (12:23)
[2018-10-07] MEDS ORDERED: LEVE750T8 PO (12:25)
== END 2018-10-07 16:40 | disposition home or self-care (01) | DRG 776 ==
LOC: ED 09:32 → EDIP 10:30 → 3NE 14:23 → DCLOUNGE 10-07 16:30
PROVIDERS: ADMIT Internal Medicine; ATTEND Internal Medicine
DX: O99.355 Diseases of the nervous system complicating the puerperium (principal); G40.209 Localization-related (focal) (partial) symptomatic epilepsy and epileptic syndromes with complex partial seizures, not intractable, without status epilepticus; O86.20 Urinary tract infection following delivery, unspecified; O9A.5 Psychological abuse complicating pregnancy, childbirth and the puerperium; E87.6 Hypokalemia; F15.10 Other stimulant abuse, uncomplicated; G31.84 Mild cognitive impairment of uncertain or unknown etiology; O90.89 Other complications of the puerperium, not elsewhere classified; B95.1 Streptococcus, group B, as the cause of diseases classified elsewhere; Z59.0 Homelessness; Z72.0 Tobacco use; Z91.14 Patient's other noncompliance with medication regimen
CPT/HCPCS: 36415; 80053; 80177; 80307; 80329; 81001; 83605; 84443; 85025; 87086; 87147; 93005; 96365; 99285; G0378; J1953; J3480; G0480

== ENCOUNTER 2018-11-26 09:44 | Emergency (ER) | payer MEDICAID ==
[~2018-11-26] VITALS: Ht 165.1 cm; Wt 50.0 kg
[~2018-11-26 09:44] MED LIST changes: +CEFD250S26 PO; +CEFD300C37 PO; +LEVE750T8 PO
--- NOTE | 2018-11-26 09:59 | NUR ---
PT BIB EMS AFTER FRIEND CALLED WHEN PT "WOULDN'T WAKE UP." UPON ARRIVAL, PT IS DROWSY, BUT A&OX4. HX SEIZURES, NON COMPLIANT WITH PRESCRIBED KEPPRA. UNKNOWN IF ALTERED MENTAL STATUS IS RELATED TO SEIZURE OR DRUG ABUSE. PT STATES METH ABUSE, LAST USED "A FEW DAYS AGO." SEIZURE PRECAUTIONS IN PLACE. CONNECTED TO MONITORS. VSS. EDMD PRESENT FOR ASSESSMENT. ORDERS RECEIVED. LABS DRAWN. AWAITING RESULTS.
[2018-11-26] MEDS ORDERED: LEVETIRACETAM 1,000 MG in SODIUM CHLORIDE 0.9% 100 ML IV ONE (10:00)
[2018-11-26 10:14] LABS: BASOPHILS # (AUTO) 0.09 x10^3/uL (0-0.1); BASOPHILS % (AUTO) 2 % (0-1); EOSINOPHILS # (AUTO) 0.05 x10^3/uL (0-0.4); EOSINOPHILS % (AUTO) 1 % (1-7); LYMPHOCYTES # (AUTO) 0.95 x10^3/uL (1-3.4); LYMPHOCYTES % (AUTO) 18 % (22-44); MD NO; MEAN CORPUSCULAR HEMOGLOBIN 28.2 pg (27.0-34.8); MEAN CORPUSCULAR HGB CONC 33.3 g/dL (32.4-35.8); MEAN CORPUSCULAR VOLUME 84.7 fL (80-100); MONOCYTES # (AUTO) 0.59 x10^3/uL (0.2-0.8); MONOCYTES % (AUTO) 11 % (2-9); NEUTROPHILS # (AUTO) 3.72 x10^3/uL (1.8-6.8); NEUTROPHILS % (AUTO) 69 % (42-75); PLATELET COUNT 349 x10^3/uL (130-400); RED BLOOD COUNT 3.97 x10^6/uL (3.82-5.3); RED CELL DISTRIBUTION WIDTH 14.8 % (9.6-15.2)
[2018-11-26 10:22] LABS: ALBUMIN 3.7 g/dL (3.4-5.0); ANION GAP 10 mmol/L (5-15); CALCIUM 8.9 mg/dL (8.5-10.1); CHLORIDE 109 mmol/L (98-107)
[2018-11-26 10:26] LABS: ALANINE AMINOTRANSFERASE 19 U/L (12-78); ALKALINE PHOSPHATASE 98 U/L (45-117); BILIRUBIN,TOTAL 0.6 mg/dL (0.2-1.0); CREATININE 1.03 mg/dL (0.55-1.02); TOTAL PROTEIN 7.1 g/dL (6.4-8.2)
--- NOTE | 2018-11-26 10:36 | NUR ---
PT RESTING IN ROOM. REMAINS VERY DROWSY. VSS. NO NEEDS EXPRESSED. SEIZURE PRECAUTIONS IN PLACE. PT MEDICATION PER OCT. AWAITING LAB RESULTS.
[2018-11-26 11:55] VITALS: BP 104/64
--- NOTE | 2018-11-26 11:56 | NUR ---
PT UP TO RR WITH STEADY GAIT ACCOMPANIED BY THIS RN AND TECH. BOWMAN COLLECTED AND SENT. PT BACK TO ROOM AND CONNECTED TO MONITORS. VSS. AWAITING RESULTS.
[2018-11-26 12:19] LABS: AMPHETAMINE SCREEN, URINE Positive (Negative); BARBITURATE SCREEN, URINE Negative (Negative); BENZODIAZEPINE SCREEN, URINE Negative (Negative); CANNABINOID SCREEN, URINE Negative (Negative); COCAINE SCREEN, URINE Negative (Negative); METHADONE SCREEN, URINE Negative (Negative); OPIATE SCREEN, URINE Negative (Negative)
--- NOTE | 2018-11-26 12:23 | NUR ---
SW AND CPS AT BEDSIDE. PER TOM, CAN DC AFTER CONSENTS ARE SIGNED.
== END 2018-11-26 13:02 | disposition home or self-care (01) ==
LOC: ED 12:15
DX: G40.909 Epilepsy, unspecified, not intractable, without status epilepticus (principal); F15.229 Other stimulant dependence with intoxication, unspecified; Z72.9 Problem related to lifestyle, unspecified
CPT/HCPCS: 36415; 80053; 80307; 85025; 96374; 99283; J1953

== ENCOUNTER 2018-12-10 23:08 | Emergency (ER) | payer MEDICAID ==
[~2018-12-10] VITALS: Ht 165.1 cm; Wt 50.0 kg
[2018-12-10 23:12] VITALS: BP 108/66
--- NOTE | 2018-12-10 23:40 | NUR ---
PT AMBULATES TO ROOM FROM LOBBY WITH STEADY GAIT.
--- NOTE | 2018-12-10 23:45 | NUR ---
PT IN GOWN IN [facility]. PT ATTACHED TO VS MACHINES. VSS. PT STATES SHE JUST WANTS A DOSE OF KEPPRA AND A PRESCRIPTION REFILL FOR SAME FOR TONIGHT. PT DENIES ANY OTHER SYMPTOMS. PT VSS AT THIS TIME, AWAITING ERP.
[2018-12-11] MEDS ORDERED: LEVETIRACETAM 500 MG TABLET PO SCH
[2018-12-11] MEDS ORDERED: LEVETIRACETAM 500 MG TABLET ONE (00:05)
--- NOTE | 2018-12-11 00:15 | NUR ---
PT MEDICATED PER MAR.
--- NOTE | 2018-12-11 00:27 | NUR ---
pt d/c with d/c summary and scripts. all questions answered. pt ambulates to registration desk with steady gait for dc home. pt denies any other needs pertaining to this visit.
== END 2018-12-11 00:30 | disposition home or self-care (01) ==
LOC: ED 12-11 00:22
DX: G40.309 Generalized idiopathic epilepsy and epileptic syndromes, not intractable, without status epilepticus (principal); Z76.0 Encounter for issue of repeat prescription
CPT/HCPCS: 99283

== ENCOUNTER 2019-10-11 08:09 | Emergency (ER) | payer MEDICAID ==
[~2019-10-11] VITALS: Ht 165.1 cm; Wt 53.0 kg
[2019-10-11] MEDS ORDERED: LEVETIRACETAM 500 MG TABLET ONE (08:58)
[2019-10-11] MEDS ORDERED: LEVETIRACETAM 500 MG TABLET PO ONE (09:00)
[2019-10-11 09:38] VITALS: BP 102/66
== END 2019-10-11 09:48 | disposition home or self-care (01) ==
LOC: ED 09:20
DX: G40.919 Epilepsy, unspecified, intractable, without status epilepticus (principal)
CPT/HCPCS: 99283; 99285

== ENCOUNTER 2019-11-21 11:15 | Emergency (ER) | payer MEDICAID ==
[~2019-11-21] VITALS: Ht 165.1 cm; Wt 55.2 kg
[2019-11-21 11:19] VITALS: BP 105/59
--- NOTE | 2019-11-21 11:41 | NUR ---
vitals obtained by this tech
== END 2019-11-21 12:38 | disposition home or self-care (01) ==
LOC: ED 12:09
DX: Z76.0 Encounter for issue of repeat prescription (principal); R56.9 Unspecified convulsions; F17.290 Nicotine dependence, other tobacco product, uncomplicated
CPT/HCPCS: 99281